=== PATIENT | male | born 1990 | race Two or more races ===

== ENCOUNTER 2021-05-17 11:12 | Emergency (ER) | payer MEDICAID ==
[~2021-05-17] VITALS: Ht 170.2 cm; Wt 85.9 kg
[2021-05-17 11:59] VITALS: BP 122/87
== END 2021-05-17 13:07 ==
LOC: ED 12:45
DX: S90.821A Blister (nonthermal), right foot, initial encounter (principal); S90.822A Blister (nonthermal), left foot, initial encounter; Z59.0 Homelessness; Z88.0 Allergy status to penicillin; X58.XXXA Exposure to other specified factors, initial encounter; Y93.89 Activity, other specified; Y92.89 Other specified places as the place of occurrence of the external cause; Y99.8 Other external cause status
CPT/HCPCS: 99282